=== PATIENT | male | born 1965 | race Caucasian/White ===

== ENCOUNTER 2016-07-30 09:06 | Emergency (ER) | payer OTHER ==
[~2016-07-30] VITALS: Ht 170.2 cm; Wt 80.3 kg
[2016-07-30 09:12] VITALS: BP 128/90
--- NOTE | 2016-07-30 09:32 | ED UPPER/LOWER EXTREMITY COMPL ---
History of Present Illness General Chief Complaint: Low Back Pain/Injury Stated Complaint: LFT ARM AND TINGILING LOWER BACK PAIN Source: patient, family, old records Exam Limitations: no limitations Vital Signs & Intake/Output Vital Signs & Intake/Output Vital Signs Date Time Temp Pulse Resp B/P Pulse O2 O2 Flow FiO2 Ox Delivery Rate 07/31 911 96.2 62 16 128/90 96 Room Air Allergies Coded Allergies: NO KNOWN ALLERGIES (08/09/12) Reconcile Medications Cyclobenzaprine HCl 5 MG TABLET 1 TAB PO TIDPRN PRN PAIN Ibuprofen 800 MG TABLET 1 TAB PO TID PRN PAIN Methylprednisolone. (Medrol) 4 MG TAB.DS.PK 1 DP PO AD RADICULOPATHY 6 on day 1 then reduce by one tablet daily until gone Triage Note: 51 Y/O MALE C/O PAIN IN L SHOULDER AND "TINGLING" DOWN L ARM X 3 MONTHS; ALSO C/O PAIN IN L LOW BACK X 1 DAYS. DENIES RECENT INJURY OR ANY TRAUMA. DID NOT TAKE MEDS FOR SYMPTOMS TODAY. DECLINES OFFER OF W/C. Triage Nurses Notes Reviewed? yes Onset: Gradual Duration: X 3 MONTHS Timing: recent history Severity: mild, moderate Severity Numbers: 6 Pain/Injury Location: Left: Shoulder. Method of Injury: unknown Modifying Factors: Worsens With: movement. Associated Symptoms: numbness HPI: This is a 51-year-old male with history of hypertension high cholesterol borderline diabetes. She is not on medication presents complaining of a 3 month history of intermittent numbness and tingling to his left arm and pain to the left shoulder that radiates up into his left neck. He has not sought care for the symptoms until today or taken any medications for his symptoms. He denies any other joint pain numbness or tingling to his extremities. He denies recent injury trauma or fall no chest pain shortness of breath. The patient is also plane one-day history of left lower back pain he denies recent injury to explain the symptoms there is no radiation of the symptoms pain is aching. He denies any leg pain urinary symptoms fever or chills. Pain is worse with movement of the arm better at rest she denies swelling to the arm (MORIAH GREER) Past History Travel History Traveled to [place] past 21 day No Medical History Any Pertinent Medical History? see below for history Neurological: NONE EENT: NONE Cardiovascular: hypertension, CHOLESTEROL Respiratory: NONE Gastrointestinal: NONE Hepatic: NONE Renal: NONE Musculoskeletal: NONE Psychiatric: NONE Endocrine: diabetes Blood Disorders: NONE Cancer(s): NONE [employer]IC/Reproductive: NONE Influenza Vaccine: 03/25/13 Surgical History Surgical History: non-contributory Psychosocial History What is your primary language Yakut Tobacco Use: Current Daily Use Daily Tobacco Use Amount/Type: => 5 Cigarettes daily Family History Hx Contributory? No (MORIAH GREER) Review of Systems Review of Systems Constitutional: Reports: see HPI. All Other Systems: Reviewed and Negative Comments Review of systems: See HPI, All other systems negative. Constitutional, no chills no fever, no malaise HEENT: No visual changes no sore throat no congestion Cardiovascular: No chest pain , no palpitation Skin, no rashes, no change in skin Respiratory: No dyspnea no cough no sputum GI: No nausea no vomiting, no diarrhea, : No dysuria No hematuria Muscle skeletal: No joint pain, no back pain, no neck pain, Neurologic: No numbness no headache Psych: No stress Heme/endocrine: No bruising no bleeding Immunology: No lymphadenopathy (MORIAH GREER) Physical Exam Physical Exam General Appearance: well developed/nourished, no apparent distress, alert, awake Comments: Well-developed well-nourished patient in no apparent distress. HEENT: Atraumatic, extraocular motion intact Neck: Supple, FROM, no midline or paracervical tenderness Back: FROM, left sided paralumbar muscle tenderness palpation Cardiovascular: Regular rate and rhythms no murmurs rubs or gallops, Respiratory: Chest nontender.There were no bony deformities, no asymmetry. No respiratory distress. Patient speaking in full complete sentences. Breath sounds clear to auscultation bilaterally: NO W/R/R Shoulder: Atraumatic/Stable. FROM . Elbow: Atraumatic/stable. FROM. No laxity Upper arm/Forearm: Atraumatic. Nontender. No edema, 5 out of 5 [employer] principal strength noted to bilateral upper extremities Hand/Wrist: Atraumatic/stable. Skin intact. FROM Pulses: Normal/equal radial pulses bilaterally. Brisk cap refill Lower Extremities: full range of motion Neuro: Alert and oriented x3 Skin: Warm & dry;No appreciable rash on exposed skin Psych: Mood affect normal, normal memory normal judgment. (MORIAH GREER) Progress Differential Diagnosis: arterial insufficiency, cellulitis, contusion, DVT, fracture, sprain, RADICULOPATHY Plan of Care: Current Medications Sig/Sonya Start time Last Medication Dose Stop Time Status Admin Ibuprofen 800 MG ONCE ONE 07/30 944 AC (Motrin) 07/30 945 Prednisone 60 MG ONCE ONE 07/30 944 AC 07/30 945 Advise close follow-up with his primary care physician as he may need an MRI. Prescription for Medrol Dosepak Flexeril provided advised return anytime sooner if any concerns patient looks clinically well they feel comfortable to plan cleared for discharge (MORIAH GREER) Departure Departure Time of Disposition: 941 Disposition: HOME OR SELF CARE Condition: Stable Clinical Impression Primary Impression: Cervical radiculopathy Referrals: INDIRA SAUNDERS MD (PCP/Family) Additional Instructions: FOLLOW UP WITH YOUR PMD THIS WEEK. MEDROL DOSE TROY, IBUPROFEN AND FLEXERIL DIRECTED. THESE WERE SENT TO YOUR PHARMACY. USE CAUTION THE FLEXERIL MAY MAKE YOU DROWSY. INTERCHANGE ICE AND HEAT. Departure Forms: Customer Survey General Discharge Information Prescriptions: Current Visit Scripts Cyclobenzaprine HCl 1 TAB PO TIDPRN PRN PAIN #12 TAB Methylprednisolone. (Medrol) 1 DP PO AD #1 DP 6 on day 1 then reduce by one tablet daily until gone Ibuprofen 1 TAB PO TID PRN PAIN #30 TAB (MORIAH GREER) PA/LOCATE TECHNICIAN Co-Sign Statement Statement: ED Attending supervision documentation- [] I saw and evaluated the patient. I have also reviewed all the pertinent lab results and diagnostic results. I agree with the findings and the plan of care as documented in the PA's/LOCATE TECHNICIAN's documentation. x I have reviewed the ED Record and agree with the PA's/LOCATE TECHNICIAN's documentation. [] Additions or exceptions (if any) to the PAs/LOCATE TECHNICIAN's note and plan are summarized below: [] (OCHOA ESCOBAR,FREDDY)
[2016-07-30] MEDS ORDERED: MEDROL4 M2 PO (09:43)
[2016-07-30] MEDS ORDERED: CYCLOBENZAPRINE5 M2 PO (09:43)
[2016-07-30] MEDS ORDERED: IBUPROFEN800 M1 PO (09:43)
== END 2016-07-30 09:51 ==
LOC: ERH 09:06
DX: M54.12 Radiculopathy, cervical region (principal)